=== PATIENT | male | born 1980 | race American Indian/Alaskan Native ===

== ENCOUNTER 2019-05-10 10:30 | Emergency (ER) | payer SELFPAY ==
[2019-05-10] MEDS ORDERED: IBUPROFEN 800 MG TAB PO ONE (15:45)
--- NOTE | 2019-05-10 15:46 | Emergency Department Report ---
ED General Adult HPI - General Chief complaint: Neck Pain/Injury Stated complaint: NUMBINESS LEFT SHOULDER, SHARP PAIN NECK Time Seen by Provider: 05/10/19 14:08 Source: patient Mode of arrival: Ambulatory Limitations: No Limitations - History of Present Illness Initial comments: 38-year-old -[place] male patient without significant past medical history presents with complaints of left-sided neck pain, stiffness, and numbness/tingling x1.5 weeks. He denies any injury to his neck. He does admit to heavy lifting while working out. Patient also denies any fever/chills/sweats, back pain, numbness/tingling/weakness in his limbs, or difficulty with ambulation. He rates his current pain as a 7/10 in severity -: Sudden Severity scale (0 -10): 7 - Related Data Allergies Allergy/AdvReac Type Severity Reaction Status Date / Time No Known Allergies Allergy Verified 05/10/19 15:49 ED Review of Systems ROS: Stated complaint: NUMBINESS LEFT SHOULDER, SHARP PAIN NECK Other details as noted in HPI Constitutional: denies: chills, fever Eyes: denies: vision change Respiratory: denies: cough, shortness of breath Cardiovascular: denies: chest pain Gastrointestinal: denies: nausea, vomiting, diarrhea Musculoskeletal: denies: back pain Skin: denies: rash, lesions, change in color Hematological/Lymphatic: denies: swollen glands ED Past Medical Hx - Past Medical History Previous Medical History?: No - Surgical History Past Surgical History?: No - Social History Smoking Status: Never Smoker Substance Use Type: Alcohol ED Physical Exam - General Limitations: No Limitations General appearance: alert, in no apparent distress - Head Head exam: Present: atraumatic, normocephalic - Eye Eye exam: Present: normal appearance - ENT ENT exam: Present: mucous membranes moist - Neck Neck exam: Present: tenderness (Spinal and left paraspinal tenderness to palpation noted), full ROM. Absent: meningismus, lymphadenopathy - Respiratory Respiratory exam: Present: normal lung sounds bilaterally. Absent: respiratory distress - Cardiovascular Cardiovascular Exam: Present: regular rate, normal rhythm. Absent: systolic murmur, diastolic murmur, rubs, gallop - Extremities Exam Extremities exam: Present: normal inspection, full ROM - Back Exam Back exam: Present: normal inspection, full ROM - Neurological Exam Neurological exam: Present: alert, oriented X3, normal gait. Absent: motor sensory deficit - Psychiatric Psychiatric exam: Present: normal affect, normal mood - Skin Skin exam: Present: warm, dry, intact, normal color. Absent: rash, cyanosis, diaphoretic, erythema, ecchymosis ED Course Vital Signs 05/10/19 05/10/19 10:37 16:22 Temperature 98.0 F 97.4 F L Pulse Rate 93 H 72 Respiratory 13 20 Rate Blood Pressure 124/73 128/87 [Right] O2 Sat by Pulse 99 100 Oximetry ED Medical Decision Making - Radiology Data Radiology results: report reviewed CERVICAL SPINE 3 VIEWS INDICATION / CLINICAL INFORMATION: left sided paresthesias COMPARISON: None available. FINDINGS: BONES / JOINT(S): No acute fracture or subluxation. Mild DDD C4-C6. SOFT TISSUES: No significant abnormality. ADDITIONAL FINDINGS: None. - Medical Decision Making Patient here with complaints of neck pain and numbness and tingling to the left side of the neck for the past 1.5 weeks. He denies any injury. Neuro exam is normal. No meningeal signs noted on exam. X-ray of the cervical spine shows degenerative disc disease at C4-C6. Patient is well-appearing and his vitals are normal. He is stable for discharge home. Will treat for cervical radiculopathy with Robaxin, ibuprofen, and prednisone. Recommend follow-up with specialist physician. Discussed strict return precautions in detail with patient who verbalizes understanding. Critical care attestation.: If time is entered above; I have spent that time in minutes in the direct care of this critically ill patient, excluding procedure time. ED Disposition Clinical Impression: Cervical radiculopathy, DDD (degenerative disc disease), cervical Disposition: DC-01 TO HOME OR SELFCARE Is pt being admited?: No Condition: Stable Instructions: Cervical Radiculopathy (ED), Degenerative Disc Disease (ED) Referrals: [facility] [Provider Group] - 7-10 days
--- NOTE | 2019-05-10 16:17 | XRay Report ---
CERVICAL SPINE 3 VIEWS INDICATION / CLINICAL INFORMATION: left sided paresthesias COMPARISON: None available. FINDINGS: BONES / JOINT(S): No acute fracture or subluxation. Mild DDD C4-C6. SOFT TISSUES: No significant abnormality. ADDITIONAL FINDINGS: None. Signer Name: Isaiah Case MD Signed: 05/10/2019 4:13 PM Workstation Name: [id number]
[2019-05-10 16:23] VITALS: BP 128/87
== END 2019-05-10 17:07 ==
LOC: ED 10:30
DX: M54.12 Radiculopathy, cervical region (principal); M50.321 Other cervical disc degeneration at C4-C5 level; M50.322 Other cervical disc degeneration at C5-C6 level
CPT/HCPCS: 72040